=== PATIENT | female | born 2000 | race Caucasian/White ===

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

== ENCOUNTER 2018-02-14 23:31 | Emergency (ER) | payer BC ==
[2018-02-14 23:40] VITALS: BP 128/91; PULSE 69; TEMP 98; BMI 23.3
[2018-02-14] MEDS ORDERED: SODIUM CHLORIDE 1,000 ML IV STA (23:58)
[2018-02-14] MEDS ORDERED: FAMOTIDINE 20 MG/50 ML IVPB 20 MG/50 ML MG IVPB ONE (23:58)
--- NOTE | 2018-02-15 | PDOC ---
History of Present Illness - General Chief Complaint: Pain, Acute Stated Complaint: ABDOMINAL PAIN Time Seen by Provider: 02/14/18 23:33 - History of Present Illness Initial Comments: 02/15/18 00:13 This 17-year-old woman with a history of celiac disease and migraines presents with several hour history of epigastric pain. She states that at approximately 5:30 PM she had onset of steady pain in mid epigastrium accompanied by nausea ( no vomiting). She had eaten some mixed nuts a few hours before; she had had lunch(chicken/avocado which she eats frequently) few hours prior to that. Since the onset of pain she has had a few soft but formed stools. There has been no fever/chills; she denies urinary frequency/urgency or hematuria. No back pain is reported. LMP 01/27; menstrual periods have been regular with no change in flow. No history of midcycle pain Patient states that her celiac disease has been under control since she is very careful with her diet. No recent abdominal pain secondary to the celiac disease. She denies previous GERD/gastritis/peptic ulcer disease. She occasionally takes Tums but has had no persistent heartburn-like pain Past History - Past Medical History Allergies/Adverse Reactions: Allergies Allergy/AdvReac Type Severity Reaction Status Date / Time No Known Drug Allergies Allergy Verified 11/13/15 23:27 GLUTENS Allergy Uncoded 09/20/15 12:59 Home Medications: Ambulatory Orders Rizatriptan Benzoate [Maxalt] 5 mg PO PRN PRN 09/20/15 Norethindrone AC-Eth Estradiol [Loestrin 21 1-20 Tablet] 1 each PO DAILY Lisdexamfetamine Dimesylate [Vyvanse] 30 mg PO DAILY 12/06/16 COPD: No GI Disorders: Yes (CELIAC DSE) Psychiatric Problems: Yes Other medical history: MIGRAINES - Immunization History Immunization Up to Date: Yes - Suicide/Smoking/Psychosocial Hx Smoking Status: No Smoking History: Never smoked Have you smoked in the past 12 months: No Number of Cigarettes Smoked Daily: 0 Hx Alcohol Use: Yes Drug/Substance Use Hx: No Substance Use Type: None Review of Systems - Review of Systems Able to Perform ROS?: Yes Comments:: 12 point review of systems is negative except for what is noted in the history of present illness *Physical Exam - Vital Signs Last Vital Signs Temp Pulse Resp BP Pulse Ox 98 F 69 18 128/91 100 02/14/18 23:36 02/14/18 23:36 02/14/18 23:36 02/14/18 23:36 02/14/18 23:36 - Physical Exam Comments: GENERAL: Young adult female, alert and oriented 3, in mild distress secondary to epigastric pain; vital signs as noted HEAD: Normal with no signs of trauma. EYES: PERRLA, EOMI, sclera anicteric, conjunctiva clear. ENT: Ears normal, nares patent, oropharynx clear without exudates. Dry mucous membranes. NECK: Normal range of motion, supple without lymphadenopathy, JVD, or masses. LUNGS: Breath sounds equal, clear to auscultation bilaterally. No wheezes, and no crackles. HEART:Regular rate and rhythm, normal S1 and S2 without murmur, rub or gallop. ABDOMEN:.normal bowel sounds ;mild epigastric/right upper quadrant tenderness; no involuntary guarding/rebound. No masses palpated Mild increase in tenderness in RUQ on full inspiration EXTREMITIES: Normal range of motion, no edema. No clubbing or cyanosis. No erythema, or tenderness. NEUROLOGICAL: Cranial nerves II through XII grossly intact. Normal speech. No focal neurological deficits. MUSCULOSKELETAL: Back non-tender to palpation, no CVA tenderness SKIN: Warm, Dry, normal turgor, no rashes or lesions noted. Moderate Sedation - Procedure Monitoring Vital Signs: Procedure Monitoring Vital Signs Temperature 98 F 02/14/18 23:36 Pulse Rate 69 02/14/18 23:36 Respiratory Rate 18 02/14/18 23:36 Blood Pressure 128/91 02/14/18 23:36 O2 Sat by Pulse Oximetry (%) 100 02/14/18 23:36 ED Treatment Course - LABORATORY CBC & Chemistry Diagram: 02/15/18 00:05 02/15/18 00:05 Medical Decision Making - Medical Decision Making This 17-year-old girl with history of celiac disease presents with several hour history of epigastric pain with nausea. No other associated symptoms. No previous history of peptic ulcer disease, GERD, gastritis. Exam as noted with epigastric tenderness and mild right upper quadrant tenderness. Differential diagnosis includes gastritis/GERD/PUD, gallbladder disease, pancreatitis, flare of celiac disease. CBC/chem profile/lipase/PGU sent; patient will receive Pepcid 20 mg IV/Protonix 40 mg IV, 1 liter fluid IV. Because of her mild right upper quadrant tenderness , gallbladder ultrasound will be performed to fully rule out biliary causes of her symptoms. Patient's pain is improved after Pepcid/Protonix. Preliminary gallbladder ultrasound reading by [employer] salesperson: No evidence of pathology in biliary tract /pancreas/right kidney Laboratory evaluation essentially normal except for evidence of mild prerenal azotemia. Patient feels significant improvement with almost complete resolution of epigastric discomfort. Patient will be discharged in the company of her mother with instructions to continue Pepcid 20 mg a day (PPI will be avoided because of patient's history of migraine) and avoid acidic foods/alcohol/coffee. She should also avoid fasting, eating more frequent smaller meals if needed. She should follow up with her general doctor within the next 3-4 days. She should return to the emergency room if she has severe pain or vomiting 1 *DC/Admit/Observation/Transfer Diagnosis at time of Disposition: Gastritis Qualifiers: Gastritis type: unspecified gastritis Chronicity: acute Gastritis bleeding: without bleeding Qualified Code(s): K29.00 - Acute gastritis without bleeding - Discharge Dispostion Disposition: HOME Condition at time of disposition: Stable - Referrals - Patient Instructions Printed Discharge Instructions: DI for Gastritis Additional Instructions: Avoid acidic foods/alcohol/coffee Pepcid 20 mg daily Eat frequent, small meals to avoid prolonged fasting Return to ER if you have severe pain/vomiting Follow-up with your doctor within the next 3-4 days - Post Discharge Activity
[2018-02-15] MEDS ORDERED: FAMOTIDINE 20 MG/50 ML IVPB 20 MG/50 ML MG IVPB ONE (00:04)
[2018-02-15] MEDS ORDERED: PANTOPRAZOLE SODIUM 40 MG VIAL ONE (00:57)
[2018-02-15] MEDS ORDERED: PANTOPRAZOLE SODIUM 40 MG VIAL IVPB ONE (00:57)
[2018-02-15 01:07] LABS: BASO % 0.2 % (0-2.0); EOS % 0.6 % (0-4.5); HEMATOCRIT 37.1 % (32.4-45.2); HEMOGLOBIN 12.8 GM/dL (10.7-15.3); LYMPH % 12.8 % (8-40); MCH 28.9 pg (25.7-33.7); MCHC 34.6 g/dl (32.0-36.0); MEAN CELL VOLUME 83.5 fl (80-96); MEAN PLT VOLUME 7.9 fl (7.5-11.1); MONO % 3.7 % (3.8-10.2); NEUT % 82.7 % (42.8-82.8); PLATELET COUNT 252 K/MM3 (134-434); RBC 4.44 M/mm3 (3.60-5.2); RDW 13.1 % (11.6-15.6); WHITE BLOOD COUNT 8.1 K/mm3 (4.0-10.0)
[2018-02-15 01:27] LABS: ALBUMIN 3.6 g/dl (3.4-5.0); ALK PHOS 58 U/L (45-117); ANION GAP 6 MMOL/L (8-16); BILIRUBIN,TOTAL 0.2 mg/dL (0.2-1); BLOOD UREA NITROGEN 19 mg/dL (7-18); CALCIUM 8.7 mg/dL (8.5-10.1); CHLORIDE 106 mmol/L (98-107); CO2 25 mmol/L (21-32); CREATININE 0.6 mg/dL (0.55-1.3); GLUCOSE,RANDOM 113 mg/dL (74-106); LIPASE 124 U/L (73-393); POTASSIUM 4.4 mmol/L (3.5-5.1); SGOT/AST 28 U/L (15-37); SGPT/ALT 22 U/L (13-61); SODIUM 137 mmol/L (136-145); TOT PROT 7.1 g/dl (6.4-8.2)
== END 2018-02-15 01:43 | disposition home or self-care (01) ==
LOC: FER 23:31
PROC: 3E033GC Introduction of Other Therapeutic Substance into Peripheral Vein, Percutaneous Approach (ICD-10-PCS; principal; 2018-02-14)
PROC: 3E0337Z Introduction of Electrolytic and Water Balance Substance into Peripheral Vein, Percutaneous Approach (ICD-10-PCS; 2018-02-14)
DX: K29.00 Acute gastritis without bleeding (principal); K90.0 Celiac disease
CPT/HCPCS: 36415; 76705-TC; 80053; 83690; 84703; 85025; 99282-25; J7030

== ENCOUNTER 2018-02-15 15:24 | Emergency (ER) | payer BC ==
--- NOTE | 2018-02-15 15:33 | PDOC ---
History of Present Illness - General Chief Complaint: Pain Stated Complaint: ABDOMINAL PAIN AFTER EATING Time Seen by Provider: 02/15/18 15:33 - History of Present Illness Initial Comments: 17-year-old woman with a history of celiac disease and migraines presents with two day history of epigastric pain and nausea without vomiting. She was in our ED last night for similar symptoms and improved with the medications given there but she declined when she went home, States that she did not take her Maalox but only her Pepcid. She has not current appointment set up with her GI doctor but is occasionally in touch with her. Denies fevers, chills, vomiting, diarrhea, constipation, chest pain, headache, or other symptoms. 02/15/18 15:49 Past History - Past Medical History Allergies/Adverse Reactions: Allergies Allergy/AdvReac Type Severity Reaction Status Date / Time No Known Drug Allergies Allergy Verified 02/15/18 15:26 GLUTENS AdvReac Uncoded 02/15/18 15:27 Home Medications: Ambulatory Orders Norethindrone AC-Eth Estradiol [Loestrin 21 1-20 Tablet] 1 each PO DAILY Lisdexamfetamine Dimesylate [Vyvanse] 30 mg PO DAILY 12/06/16 COPD: No GI Disorders: Yes (CELIAC DSE) Psychiatric Problems: Yes - Immunization History Immunization Up to Date: Yes - Suicide/Smoking/Psychosocial Hx Smoking Status: No Smoking History: Never smoked Have you smoked in the past 12 months: No Number of Cigarettes Smoked Daily: 0 Hx Alcohol Use: Yes Drug/Substance Use Hx: No Substance Use Type: None Review of Systems - Review of Systems Constitutional: No: Chills, Diaphoresis, Fever HEENTM: No: Blurred Vision, Tearing Respiratory: No: Cough, Orthopnea, Shortness of Breath Cardiac (ROS): No: Chest Pain, Edema, Irregular Heart Rate ABD/GI: Yes: Nausea. No: Diarrhea, Poor Appetite, Vomiting : No: Burning, Dysuria, Discharge Musculoskeletal: No: Back Pain, Joint Pain Integumentary: No: Bruising, Change in Color, Lesions Neurological: No: Numbness, Tremors Psychiatric: No: Stressors, Sleep Pattern Change, Emotional Problems Endocrine: No: Excessive Sweating, Intolerance to Heat, Increased Hunger Hematologic/Lymphatic: No: Anemia, Blood Clots, Easy Bleeding *Physical Exam - Physical Exam General Appearance: Yes: Nourished, Appropriately Dressed. No: Apparent Distress HEENT: positive: EOMI, LILLIAM, Normal ENT Inspection, Normal Voice Neck: positive: Trachea midline, Normal Thyroid, Supple. negative: Tender, Rigid Respiratory/Chest: positive: Lungs Clear, Normal Breath Sounds. negative: Chest Tender, Respiratory Distress, Accessory Muscle Use Cardiovascular: positive: Regular Rhythm, Regular Rate Gastrointestinal/Abdominal: positive: Normal Bowel Sounds, Flat, Soft. negative : Tender Lymphatic: negative: Adenopathy, Tenderness Musculoskeletal: positive: Normal Inspection. negative: Decreased Range of Motion Extremity: positive: Normal Capillary Refill, Normal Inspection, Normal Range of Motion. negative: Tender Integumentary: positive: Normal Color, Dry, Warm Neurologic: positive: tile machine operator II-XII NML intact, Fully Oriented, Alert, Normal Mood/ Affect, Normal Response, Motor Strength 5/5 Medical Decision Making - Medical Decision Making 17 year old female with celiac disease presenting with two days of epigastric pain and nausea without decreased appetite, vomiting, diarrhea or fevers. All labs, HCG, and RUQ US yesterday in our ED were negative. Her symptoms improved with carafata, maalox, pantoprazole, Zofran, and famotidine in our ED so she will be discharged without any new medications because of theoretical risk of headaches with protonix. Patient will also follow up with her GI doctor and has Dr. Chirinos on our discharge instructions as a backup. 02/15/18 17:27 *DC/Admit/Observation/Transfer Diagnosis at time of Disposition: Abdominal pain, epigastric, Nausea - Discharge Dispostion Disposition: HOME Condition at time of disposition: Improved Decision to Admit order: No - Referrals Referrals: Vinay Chirinos MD [Staff Physician] - - Patient Instructions Printed Discharge Instructions: DI for Abdominal Pain-Adult Additional Instructions: Please use the Pepcid and the Maalox every morning for the next 7 days or until you discuss it with your GI doctor. Please use the Zofran for nausea s needed. Avoid sweet, spicy, acidic, or basic foods. Please avoid dairy for a few days as well. Return to the ED if you have any new or worsening symptoms. - Post Discharge Activity
[2018-02-15 15:47] VITALS: BP 119/82; PULSE 83; TEMP 97.9; BMI 23.3
[2018-02-15] MEDS ORDERED: ONDANSETRON *ODT* 4 MG TABLET SL ONE (15:50)
[2018-02-15] MEDS ORDERED: FAMOTIDINE 20 MG TABLET PO ONE (15:50)
[2018-02-15] MEDS ORDERED: MAG HYDROX/AL HYDROX/SIMETH 30 ML UNIT-DOSE CUP PO ONE (15:50)
[2018-02-15] MEDS ORDERED: FAMOTIDINE 20 MG TABLET ONE (15:52)
[2018-02-15] MEDS ORDERED: MAG HYDROX/AL HYDROX/SIMETH 30 ML UNIT-DOSE CUP ONE (15:52)
[2018-02-15] MEDS ORDERED: ONDANSETRON *ODT* 4 MG TABLET ONE (15:53)
--- NOTE | 2018-02-15 16:10 | PDOC ---
Attending Attestation - Resident Resident Name: BrianneJassyanirahenrietta - ED Attending Attestation I have performed the following: I have examined & evaluated the patient, The case was reviewed & discussed with the resident, I agree w/resident's findings & plan, Exceptions are as noted - HPI HPI: 02/15/18 17:10 17-year-old with celiac disease diagnosed at age 6, well controlled on diet, complains of epigastric pain, worse with eating. She was treated in the emergency room last night and her pain was improved. However, today her pain has returned. She has only taken one dose of Pepcid since her ER visit yesterday. No vomiting, diarrhea, hematemesis, melena, bloody stool, and she is tolerating small meals and oral fluids. No lower abdominal pain. No urinary tract symptoms. No vaginal bleeding or discharge - Physicial Exam PE: 02/15/18 17:12 Alert oriented well-developed well-nourished no acute distress cooperative Afebrile, vital signs normal No pallor or icterus. ENT clear Neck supple without bruit mass or nodes Chest clear CV regular without murmur rub or gallop Abdomen nondistended, bowel sounds normal. Soft without mass or organomegaly. Mild tenderness to deep palpation in the epigastrium without guarding or rebound. No CVAT Skin clear, no rash, adequate turgor and wet mucous membranes Extremities no CCE Neurological intact Impression: Gastritis, early peptic ulcer disease Plan: The right upper quadrant sonogram and routine CBC and chemistries performed yesterday in the emergency room were without significant abnormalities. Most likely she needs increased acid control and further GI workup as an outpatient. To optimize medication management and referred to GI. - Medical Decision Making 02/15/18 17:30 Assessment: Early peptic ulcer disease or gastritis Plan: Optimize medical management. GI follow-up for endoscopy. Discomfort is improved after medication in the ER and the patient is adequately ambulatory and in no significant pain upon discharge to follow-up as directed
[2018-02-15] MEDS ORDERED: PANTOPRAZOLE 40 MG TABLET (FP) PO ONE (16:19)
[2018-02-15] MEDS ORDERED: PANTOPRAZOLE 40 MG TABLET (FP) ONE (16:24)
[2018-02-15] MEDS ORDERED: SUCRALFATE 1 GM/10 ML UNIT DOSE CUPS PO ONE (17:26)
[2018-02-15] MEDS ORDERED: SUCRALFATE 1 GM/10 ML UNIT DOSE CUPS ONE (17:27)
== END 2018-02-15 17:35 | disposition home or self-care (01) ==
LOC: FER 15:24
DX: R10.13 Epigastric pain (principal); R11.0 Nausea; K90.0 Celiac disease
CPT/HCPCS: 99282-25; Q0162